=== PATIENT | female | born 1995 | race American Indian/Alaskan Native ===

== ENCOUNTER 2020-02-14 16:25 | Inpatient (IN) | payer MEDICAID ==
[2020-02-14] MEDS ORDERED: AMPICILLIN/NS 2 GM/100 ML 2 GM/100 ML BAG IV ONE (19:15)
[2020-02-14] MEDS ORDERED: LIDOCAINE (2%) 20 MG/1 ML VIAL 20 ML MDV INFILTRATI ONE (19:15)
[2020-02-14] MEDS ORDERED: TERBUTALINE 1 MG/1 ML INJ SUB-Q PRN (19:15)
[2020-02-14] MEDS ORDERED: ePHEDrine SULFATE 50 MG/1 ML INJ IV PRN (19:15)
--- NOTE | 2020-02-14 19:19 | History and Physical Report ---
History of Present Illness Date of examination: 02/14/20 Date of admission: 02/14/2020 Chief complaint: Contractions History of present illness: 24 year old presents with contractions. Patient reports active movement. Patient received care at [facility] and records are available. LMP 05/26/2019. EDC 03/01/2020. significant for the following: later entry to care, anemia (supplemented with iron), GBS positive, vitamin D deficiency (supplemented with vitamin D), thrombocytopenia. labs are as follows: O+, antibody screen negative, rubella immune, hepatitis B surface antigen negative, HIV negative, RPR nonreactive, gonorrhea negative, chlamydia negative, trichomonas negative, HSV 2 negative, hemoglobin electrophoresis AA, AFP tetra negative, 1 hour sugar test 123, GBS positive. Past History Past Medical History: no pertinent history Past Surgical History: no surgical history [facility] History: denies: chlamydia, gonorrhea, hepatitis B, hepatitis C, herpes, HIV, syphilis, trichomonas Family/Genetic History: none Social history: single, lives with family, full code. denies: smoking, alcohol abuse, prescription drug abuse, IV drug use - Obstetrical History Expected Date of Delivery: 03/01/20 Actual Gestation: 37 Week(s) 5 Day(s) : 1 Para: 0 Hx # Term Pregnancies: 0 Number of Pregnancies: 0 Spontaneous Abortions: 0 Induced : 0 Number of Living Children: 0 Medications and Allergies Allergies Allergy/AdvReac Type Severity Reaction Status Date / Time No Known Allergies Allergy Unverified 02/14/20 11:28 Active Meds: Active Medications Ephedrine Sulfate (Ephedrine Sulfate) 10 mg IV Q2M PRN PRN Reason: Hypotension Fentanyl (Sublimaze) 100 mcg IV Q2H PRN PRN Reason: Pain,Severe (7-10) LABOR PAIN Oxytocin/Sodium Chloride (Pitocin/Ns 20 Unit/1000ml Drip) 20 units in 1,000 mls @ 125 mls/hr IV DIRECT GEMA Lactated Ringer's (Lactated Ringers) 1,000 mls @ 125 mls/hr IV DIRECT GEMA Ampicillin Sodium (Ampicillin/Ns 2 Gm/100 Ml) 2 gm in 100 mls @ 100 mls/hr IV ONCE ONE; Protocol Stop: 02/14/20 20:14 Ampicillin Sodium (Ampicillin/Ns 1 Gm/50 Ml) 1 gm in 50 mls @ 100 mls/hr IV Q4HR GEMA; Protocol Lidocaine (Xylocaine 2%) 20 ml INFILTRATI ONCE ONE Stop: 02/14/20 19:16 Terbutaline Sulfate (Brethine) 0.25 mg SUB-Q ONCE PRN PRN Reason: Hyperstimulation/Hypertonicity Review of Systems All systems: negative (contractions) - Physical Exam Abdomen: Positive: normal appearance, soft. Negative: distention, tenderness, guarding, rigidity Genitourinary (Female): Positive: normal external genitalia, normal perenium. Negative: perineal/vulvar lesions Vagina: Positive: normal moisture Uterus: Positive: enlarged. Negative: tender Anus/Rectum: Positive: normal perianal skin Extremities: Positive: normal. Negative: tenderness, edema - Obstetrical FHR: category 1 Uterine Contraction Monitor Mode: External Cervical Dilatation: 5 Cervical Effacement Percentage: 90 station: -2 Uterine Contraction Pattern: Regular Uterine Contraction Intensity: Moderate Results Result Diagrams: 02/14/20 19:25 All other labs normal. Assessment and Plan A: at 37 weeks, 5 days gestation. Active labor. GBS positive. P: Admit. EFM. GBS prophylaxis. Anticipate .
[2020-02-14 19:57] LABS: Hematocrit 37.7 % (30.3-42.9); Hemoglobin 11.9 gm/dl (10.1-14.3); Mean Corpuscular HGB Conc 32 % (30-34); Mean Corpuscular Volume 78 fl (79-97); Platelet Count 128 K/mm3 (140-440); Red Blood Count 4.84 M/mm3 (3.65-5.03); Red Cell Distribution Width 15.5 % (13.2-15.2)
[2020-02-14] MEDS ORDERED: OXYTOCIN 20 UNIT/1000ML DRIP 20 UNITS/1,000 ML BAG IV SCH (20:00)
[2020-02-14] MEDS: LACTATED RINGERS 1,000 ML IV SCH (20:16)
[2020-02-14] MEDS: fentaNYL 100 MCG/2 ML INJ IV PRN ×2 (20:23→23:09)
[2020-02-14] MEDS ORDERED: AMPICILLIN/NS 1 GM/50 ML 1 GM/50 ML BAG IV SCH (23:18)
[2020-02-15] MEDS: LACTATED RINGERS 1,000 ML IV SCH (00:50)
[2020-02-15] MEDS ORDERED: BUTORPHANOL 2 MG/1 ML INJ IV ONE ×2 (01:10→01:14)
[2020-02-15] MEDS ORDERED: LIDOCAINE (2%) 20 MG/1 ML VIAL 20 ML MDV INFILTRATI ONE (01:12)
[2020-02-15] MEDS ORDERED: BUTORPHANOL 2 MG/1 ML INJ ONE (01:12)
[2020-02-15] MEDS ORDERED: HYDROcodone/ACETAMINOPHEN 5-325 MG TAB PO PRN (01:43)
[2020-02-15] MEDS ORDERED: LANOLIN/ZINC/DIMETHICONE (LANSINOH) 7 GM TP PRN (01:43)
--- NOTE | 2020-02-15 01:54 | Procedure Note ---
OB Delivery Note - Delivery Date of Delivery: 02/15/20 Surgeon: BRONSON SERRANO Estimated blood loss: other (250 cc) - Vaginal Delivery presentation: vertex Delivery position: OA Intrapartum events: meconium Delivery induction: none Delivery augmentation: rupture of membranes Delivery monitor: external FHT, external uterine Route of delivery: Delivery placenta: spontaneous Delivery cord: 3 umbilical vessels Episiotomy: none Delivery laceration: 1st degree Delivery repair: vicryl Anesthesia: local Delivery comments: Spontaneous vaginal delivery at 01:03 of liveborn male infant weighing 5 lb. 6 oz. over intact perineum with apgars of 8/9. Nuchal cord times 1. Meconium stained amniotic fluid; NICU present at delivery. Compound presentation (right hand). 3 vessel cord double clamped and cut and baby taken to radiant warmer for suctioning. Spontaneous cry and respirations. Cord blood obtained. Spontaneous delivery of intact placenta and membranes at 01:06 by mccarthy mechanism. EBL 250 cc. Pitocin to IV fluids after delivery of placenta. Fundus firm and midline. Repair of first degree right labial laceration with 3-0 vicryl. No other lacerations noted. Vaginal sweep negative. Sponge count correct. Mother and baby stable.
[2020-02-15] MEDS: WITCH HAZEL/ GLYCERIN PAD TP PRN (10:37)
[2020-02-15] MEDS: DOCUSATE SODIUM 100 MG CAP PO SCH (10:38)
[2020-02-15] MEDS: IBUPROFEN 600 MG TAB PO SCH ×2 (10:40→16:48)
[2020-02-15 14:27] LABS: Hematocrit 30.7 % (30.3-42.9); Hemoglobin 9.8 gm/dl (10.1-14.3)
[2020-02-16] MEDS: IBUPROFEN 600 MG TAB PO SCH ×3 (10:16→21:56)
[2020-02-16] MEDS: DOCUSATE SODIUM 100 MG CAP PO SCH ×2 (14:50→21:52)
[2020-02-16] MEDS: FERROUS SULFATE 325 MG TAB PO SCH (17:45)
--- NOTE | 2020-02-16 19:13 | Progress Note ---
Assessment and Plan A: day 1 S/P . Anemia. P: Supplement with iron. Anticipate discharge tomorrow when baby is able to go. Subjective - Subjective Date of service: 02/16/20 Principal diagnosis: day 1 S/P Interval history: day 1 S/P . Doing well. No complaints. Patient reports: appetite normal, voiding normally, pain well controlled, flatus, ambulating normally, no dizzy ambulation, no nauseated : doing well Objective - Vital Signs Latest vital signs: Vital Signs Temp Pulse Resp BP Pulse Ox 02/16/20 16:57 97.2 F L 95 H 18 89/59 97 02/16/20 08:04 97.8 F 95 H 18 91/60 99 02/16/20 00:10 98.1 F 95 H 18 93/53 100 Intake and Output 02/16/20 02/16/20 02/16/20 07:59 15:59 23:59 Intake Total 240 Balance 240 Intake: Intake, Free Water 240 Other: # Voids Void 2 1 2 - Exam Cardiovascular: Present: Regular rate, Normal S1, Normal S2, No murmurs Lungs: Present: Clear to auscultation Abdomen: Present: normal appearance, soft. Absent: distention, tenderness, guarding, rigidity Uterus: Present: normal, firm, fundal height below umbilicus. Absent: sai gginess, tenderness Extremities: Present: normal. Absent: tenderness, edema
[2020-02-17] MEDS: IBUPROFEN 600 MG TAB PO SCH ×2 (06:03→12:21)
--- NOTE | 2020-02-17 07:22 | Progress Note ---
Assessment and Plan A: day 2 S/P . Anemia. P: Discharge patient home today. Discussed with patient discharge instructions and warning signs in detail. Advised patient to continue taking her vitamins and iron supplements at home. Advised patient to avoid intercourse, lifting, housework. Advised patient re: signs and symptoms of depression and need to come in if she has any of these or any other problems. Advised patient to follow up at [facility] in 2 weeks. Patient voiced understanding of all instructions. Subjective - Subjective Date of service: 02/17/20 Principal diagnosis: day 2 S/P Interval history: day 2 S/P . Doing well. No complaints. Wants to go home today. Patient reports: appetite normal, voiding normally, pain well controlled, flatus, ambulating normally, no dizzy ambulation, no nauseated : doing well Objective - Vital Signs Latest vital signs: Vital Signs Temp Pulse Resp BP Pulse Ox 02/16/20 23:47 98.4 F 90 18 94/59 99 02/16/20 16:57 97.2 F L 95 H 18 89/59 97 02/16/20 08:04 97.8 F 95 H 18 91/60 99 Intake and Output 02/16/20 02/16/20 02/17/20 15:59 23:59 07:59 Intake Total 360 Balance 360 Intake: Intake, Free Water 360 Other: # Voids Void 1 1 - Exam Cardiovascular: Present: Regular rate, Normal S1, Normal S2 Lungs: Present: Clear to auscultation Abdomen: Present: normal appearance, soft. Absent: distention, tenderness, guarding, rigidity Uterus: Present: normal, firm, fundal height below umbilicus. Absent: bogginess, tenderness Extremities: Present: normal. Absent: tenderness, edema
--- NOTE | 2020-02-17 07:23 | Discharge Summary ---
Providers - Providers Date of Admission: 02/14/20 19:15 Date of discharge: 02/17/20 Attending physician: BELGICA MICHAEL Primary care physician: GAME PROTECTOR Hospitalization Reason for admission: active labor Delivery: Episiotomy: none Laceration: none Other procedures: none complications: none Discharge diagnosis: IUP at term delivered baby: male Pertinent studies: Labs Hospital course: Normal hospital course Condition at discharge: Good Disposition: DC-01 TO HOME OR SELFCARE - Discharge Diagnoses (1) Term delivered Status: Acute (2) Anemia Status: Acute Plan - Provider Discharge Summary Activity: routine, no sex for 6 weeks, no heavy lifting 4 weeks, no strenuous exercise Diet: routine Instructions: routine Additional instructions: Continue taking your vitamin and iron supplements at home. Call your doctor immediately for: * Fever > 100.5 * Heavy vaginal bleeding ( >1 pad per hour) * Severe persistent headache * Shortness of breath * Reddened, hot, painful area to leg or breast - Follow up plan Follow up: MATEUSZ KAPADIA MD [Staff Physician] - 14 Days
[2020-02-17] MEDS: DOCUSATE SODIUM 100 MG CAP PO SCH (10:24)
[2020-02-17] MEDS: WITCH HAZEL/ GLYCERIN PAD TP PRN (10:25)
[2020-02-17] MEDS: FERROUS SULFATE 325 MG TAB PO SCH (10:25)
[2020-02-17 15:39] VITALS: BP 102/74
== END 2020-02-17 15:30 | disposition home or self-care (01) | DRG 775 ==
LOC: TRG 16:25 → APU 16:29 → TRG 19:15 → LD 19:15 → OB 02-15 03:25
PROVIDERS: ADMIT Obstetrics & Gynecology; ATTEND Obstetrics & Gynecology
PROC: 10E0XZZ Delivery of Products of Conception, External Approach (ICD-10-PCS; principal; 2020-02-15)
PROC: 0HQ9XZZ Repair Perineum Skin, External Approach (ICD-10-PCS; 2020-02-15)
DX: O77.0 Labor and delivery complicated by meconium in amniotic fluid (principal); O99.02 Anemia complicating childbirth; O99.824 Streptococcus B carrier state complicating childbirth; O70.0 First degree perineal laceration during delivery; Z3A.37 37 weeks gestation of pregnancy; Z37.0 Single live birth
CPT/HCPCS: 36415; 59025; 85014; 85018; 85027; 86850; 86900; 86901; 88307; G0378; J0290; J0595; J2590; J3010; J7120

== ENCOUNTER 2021-05-06 01:43 | Inpatient (IN) | payer MEDICAID ==
[2021-05-06] MEDS ORDERED: BUTORPHANOL 2 MG/1 ML INJ ONE (02:05)
[2021-05-06] MEDS ORDERED: LACTATED RINGERS 1,000 ML ONE (02:06)
[2021-05-06] MEDS ORDERED: OXYTOCIN DRIP 30,000 MILLIUNITS/500 ML BAG IV ONE (02:06)
[2021-05-06] MEDS ORDERED: BUTORPHANOL 2 MG/1 ML INJ IV PRN (02:10)
[2021-05-06] MEDS ORDERED: LACTATED RINGERS 1,000 ML IV SCH (02:10)
[2021-05-06] MEDS ORDERED: OXYTOCIN DRIP 30 UNITS/500 ML BAG IV SCH (02:10)
--- NOTE | 2021-05-06 03:11 | History and Physical Report ---
History of Present Illness Date of examination: 05/06/21 Date of admission: 05/06/21 Chief complaint: labor History of present illness: The patient is a 25-year-old 2 para 1-0-0-1 patient in active labor. Her records are not available at this time. Anticipate vaginal delivery. Past History Past Medical History: no pertinent history Past Surgical History: no surgical history Family/Genetic History: none Social history: single - Obstetrical History Expected Date of Delivery: 05/31/21 Actual Gestation: 36 Week(s) 3 Day(s) : 2 Para: 1 Hx # Term Pregnancies: 1 Number of Pregnancies: 0 Spontaneous Abortions: 0 Induced : 0 Medications and Allergies Allergies Allergy/AdvReac Type Severity Reaction Status Date / Time No Known Allergies Allergy Unverified 02/14/20 11:28 Home Medications Medication Instructions Recorded Confirmed Last Taken Type No Known Home Medications [No 02/16/20 02/16/20 Unknown History Reported Home Medications] Review of Systems All systems: negative - Vital Signs Vital signs: Vital Signs Pulse BP 79 117/70 05/06/21 02:16 05/06/21 02:16 Temp Pulse Resp BP Pulse Ox 97.7 F 82 18 117/70 98 05/06/21 02:38 05/06/21 03:05 05/06/21 02:38 05/06/21 02:38 05/06/21 03:05 - Physical Exam Breasts: Cardiovascular: Regular rate, Normal S1, Normal S2 Abdomen: Positive: normal appearance, soft, normal bowel sounds. Negative: distention, tenderness Vulva: both: normal Vagina: Positive: normal moisture. Negative: discharge Cervix: Negative: lesion, discharge Uterus: Positive: normal size, normal contour Adnexa: both: normal Anus/Rectum: Positive: normal perianal skin, heme negative. Negative: rectal mass, hemorrhoids Extremities: Deep Tendon Reflex Grade: Normal +2 - Obstetrical FHR: category 1 Uterine Contraction Monitor Mode: External Cervical Dilatation: 8 Cervical Effacement Percentage: 100 station: 0 Uterine Contraction Frequency (min): q5m Uterine Contraction Duration: 1 min Uterine Contraction Pattern: Regular Uterine Tone Measurement Phase: Resting Uterine Contraction Intensity: Moderate Results All other labs normal. Assessment and Plan 36 weeks active labor. Patient is 8 cm bulging bag of water. Anticipate vaginal delivery.
[2021-05-06] MEDS ORDERED: HYDROcodone/ACETAMINOPHEN 5-325 MG TAB PO PRN (03:33)
[2021-05-06] MEDS ORDERED: LANOLIN/ZINC/DIMETHICONE (LANSINOH) 7 GM TP PRN (03:33)
[2021-05-06] MEDS ORDERED: PROMETHAZINE 25 MG TAB PO PRN (03:33)
[2021-05-06] MEDS ORDERED: ONDANSETRON 4 MG/2 ML INJ IV PRN (03:33)
[2021-05-06] MEDS ORDERED: WITCH HAZEL/ GLYCERIN PAD TP PRN (03:33)
[2021-05-06] MEDS ORDERED: ACETAMINOPHEN 325 MG TAB PO PRN (03:33)
[2021-05-06] MEDS ORDERED: PROMETHAZINE 25 MG RECT SUPP PR PRN (03:33)
[2021-05-06] MEDS ORDERED: diphenhydrAMINE 25 MG CAP PO PRN (03:33)
[2021-05-06] MEDS ORDERED: MAGNESIUM HYDROXIDE (MOM) ORAL LIQD UDC PO PRN (03:33)
--- NOTE | 2021-05-06 03:40 | Procedure Note ---
Date of procedure: 05/06/21 Pre-op diagnosis: 36 weeks iup, labor Post-op diagnosis: same Procedure: Delivery note: The patient. Preoperative diagnosis 36 weeks intrauterine active labor . Postoperative diagnosis same. Procedure was a normal spontaneous vaginal delivery, delivery of the placenta spontaneously. Findings liveborn weight 5 pounds 4 ounces Apgars 8 and 9. Complications none. No tears in the vagina and the rectal mucosa was intact. Anesthesia: none Surgeon: LEATHA MARCELO Estimated blood loss: other (200ccs) Pathology: none Specimen disposition: discarded Condition: stable Disposition: observation
[2021-05-06 04:58] LABS: Basophils # (Auto) 0.2 K/mm3 (0.0-0.1); Basophils % (Auto) 1.4 % (0.0-1.8); Eosinophils % (Auto) 0.2 % (0.0-4.3); Hemoglobin 10.4 gm/dl (10.1-14.3); Lymphocytes # (Auto) 2.7 K/mm3 (1.2-5.4); Lymphocytes % (Auto) 24.2 % (13.4-35.0); Mean Corpuscular HGB Conc 31 % (30-34); Mean Corpuscular Volume 76 fl (79-97); Monocytes # (Auto) 1.4 K/mm3 (0.0-0.8); Monocytes % (Auto) 12.5 % (0.0-7.3); Red Blood Count 4.48 M/mm3 (3.65-5.03); Red Cell Distribution Width 16.3 % (13.2-15.2)
[2021-05-06 05:04] LABS: Platelet Count 240 K/mm3 (140-440)
[2021-05-06] MEDS: IBUPROFEN 600 MG TAB PO SCH ×3 (06:33→19:01)
[2021-05-06 16:01] LABS: Hemoglobin 10.2 gm/dl (10.1-14.3)
[2021-05-06 19:58] LABS: Hepatitis C Virus Antibody Non-Reactive (NonReactive)
[2021-05-07] MEDS: IBUPROFEN 600 MG TAB PO SCH ×5 (05:50→21:54)
--- NOTE | 2021-05-07 11:34 | Progress Note ---
Assessment and Plan A: day 1 S/P . Anemia. Heart murmur, fatigue. P: CBC, CMP, urinalysis. Iron supplementation. Cardiology consult. Subjective - Subjective Date of service: 05/07/21 Principal diagnosis: day 1 S/P Interval history: Patient reports fatigue and has heart murmur (new); will get cardiology consult. Patient reports: appetite normal, voiding normally, pain well controlled, flatus, ambulating normally, no dizzy ambulation, no nauseated [place]: doing well Objective - Vital Signs Latest vital signs: Vital Signs Temp Pulse Resp BP Pulse Ox Pulse Ox 05/07/21 08:50 100 05/07/21 08:30 98.4 F 75 20 93/65 05/07/21 06:50 18 05/07/21 05:50 18 05/07/21 00:20 98.1 F 69 18 98/70 97 05/06/21 20:01 18 05/06/21 16:28 98.5 F 68 18 110/65 05/06/21 12:00 98 F 78 18 101/63 Intake and Output 05/06/21 05/07/21 05/07/21 23:59 07:59 15:59 Intake Total 480 480 120 Balance 480 480 120 Intake: Oral 480 360 120 Intake, Free Water 120 Other: Total, Intake Amount 120 120 120 # Voids Void 1 1 - Exam Cardiovascular: Present: Regular rate, Other (murmur heard) Lungs: Present: Clear to auscultation Abdomen: Present: normal appearance, soft, normal bowel sounds. Absent: distention, tenderness, guarding, rigidity Uterus: Present: normal, firm, fundal height below umbilicus. Absent: bogginess, tenderness Extremities: Present: normal. Absent: tenderness, edema
--- NOTE | 2021-05-07 15:30 | Consultation ---
History of Present Illness Consult date: 05/07/21 Requesting physician: BRONSON SERRANO Consult reason: other (heart murmur) History of present illness: Patient is a 25 y/o female who S/P vaginal with no pmhx. Cardiology has been consulted for presentation of new heart murmur. At time of interview the patient is resting comfortably in bed. She reports some fatigue, lightheadedness, and SOB since giving . She denies chest pain or palpitations. Past History Past Medical History: No medical history Past Surgical History: No surgical history Social history: no significant social history, single Family history: no significant family history Medications and Allergies Allergies Allergy/AdvReac Type Severity Reaction Status Date / Time No Known Allergies Allergy Verified 05/07/21 05:52 Home Medications Medication Instructions Recorded Confirmed Last Taken Type No Known Home Medications [No 02/16/20 05/06/21 Unknown History Reported Home Medications] Active Meds: Active Medications Acetaminophen (Acetaminophen 325 Mg Tab) 650 mg PO Q4H PRN PRN Reason: Pain MILD(1-3)/Fever >100.5/MEYERS Hydrocodone Bitart/Acetaminophen (Hydrocodone/Acetaminophen 5-325 Mg Tab) 2 each PO Q6H PRN PRN Reason: Pain, Moderate (4-6) Bisacodyl (Bisacodyl 10 Mg Rect Supp) 10 mg CO BID PRN PRN Reason: Constipation Butorphanol Tartrate (Butorphanol 2 Mg/1 Ml Inj) 2 mg IV Q2H PRN PRN Reason: Labor Pain Diphenhydramine HCl (Diphenhydramine 25 Mg Cap) 25 mg PO Q6H PRN PRN Reason: Itching Ferrous Sulfate (Ferrous Sulfate 325 Mg Tab) 325 mg PO BID GEMA Lactated Ringer's (Lactated Ringers) 1,000 mls @ 125 mls/hr IV DIRECT GEMA Oxytocin/Sodium Chloride (Pitocin/Ns 30 Unit/500ml) 30 units in 500 mls @ 1 mls/hr IV TITR GEMA; Protocol Ibuprofen (Ibuprofen 600 Mg Tab) 600 mg PO Q6H GEMA Last Admin: 05/07/21 11:37 Dose: 600 mg Documented by: Magnesium Hydroxide (Magnesium Hydroxide (Mom) Oral Liqd Udc) 30 ml PO HS PRN PRN Reason: Constipation Multi-Ingredient Ointment (Lanolin/Zinc/Dimethicone (Lansinoh) 7 Gm) 1 applic TP PRN PRN PRN Reason: Sore Nipples Ondansetron HCl (Ondansetron 4 Mg/2 Ml Inj) 4 mg IV Q8H PRN PRN Reason: Nausea And Vomiting Promethazine HCl (Promethazine 25 Mg Rect Supp) 25 mg CO Q6H PRN PRN Reason: Nausea And Vomiting Promethazine HCl (Promethazine 25 Mg Tab) 25 mg PO Q6H PRN PRN Reason: Nausea And Vomiting Sodium Chloride (Sodium Chloride 0.9% 10 Ml Flush Syringe) 10 ml IV PRN PRN PRN Reason: LINE FLUSH Witch Delmy/Glycerin (Witch Delmy/ Glycerin Pad) 1 each TP PRN PRN PRN Reason: Hemorrhoid/cleansing/soothing Last Admin: 05/06/21 11:11 Dose: 1 each Documented by: Review of Systems All systems: negative Constitutional: no weight loss, no weight gain, no fever, no chills, no sweats Ears, nose, mouth and throat: no nasal congestion, no nasal discharge, no sinus pressure, no sinus pain Cardiovascular: lightheadedness, shortness of breath, no chest pain, no orthopnea, no palpitations, no rapid/irregular heart beat Respiratory: shortness of breath, no cough, no cough with sputum, no excessive sputum, no hemoptysis Gastrointestinal: no abdominal pain, no nausea, no vomiting Musculoskeletal: no neck stiffness, no neck pain, no shooting arm pain, no arm numbness/tingling Integumentary: no rash, no pruritis, no redness, no sores Neurological: no head injury, no transient paralysis, no paralysis, no weakness Psychiatric: no anxiety, no memory loss Endocrine: no cold intolerance, no heat intolerance Hematologic/Lymphatic: no easy bruising, no easy bleeding Physical Examination Last Vital Signs Temp 98.4 F 05/07/21 08:30 Pulse 75 05/07/21 08:30 Resp 16 05/07/21 11:37 BP 93/65 05/07/21 08:30 Pulse Ox 100 05/07/21 08:50 General appearance: no acute distress HEENT: Positive: PERRL Neck: Positive: neck supple, trachea midline Cardiac: Positive: Reg Rate and Rhythm, Systolic Murmur Lungs: Positive: clear to auscultation, Normal Breath Sounds Neuro: Positive: Grossly Intact Abdomen: Positive: Soft, Active Bowel Sounds Skin: Negative: Rash, Suspicious Lesions, Ulceration Extremities: Present: upper extr. pulses, lower extr. pulses Results 05/06/21 15:12 CBC 05/06/21 Range/Units 15:12 Hgb 10.2 (10.1-14.3) gm/dl Hct 32.0 (30.3-42.9) % - Imaging and Cardiology Echo: pending Assessment and Plan S/P Vaginal delivery Heart murmur * Patient gave yesterday. Has systolic murmur /. * Echo 05/07/2021 -EF 50-55%, mild tricuspid regurgitation, trace pulmonary insufficiency, RVSP 15mmHg Echo shows no significant acute findings. Patient stable and may be discharged from a cardiology perspective. Patient seen in conjunction with Dr. Melendez. - Patient Problems (1) Heart murmur, systolic Current Visit: Yes Status: Acute (2) Anemia Current Visit: No Status: Acute (3) Term delivered Current Visit: No Status: Acute
[2021-05-07 16:17] LABS: Bilirubin,Urine NEG (Negative); Blood,Urine LG (Negative); Color,Urine Yellow (Yellow); Mucus,Urine FEW /HPF; Protein,Urine <15 mg/dL mg/dL (Negative); Urobilinogen,Urine < 2.0 mg/dL (<2.0)
[2021-05-07 19:56] LABS: Basophils # (Auto) 0.1 K/mm3 (0.0-0.1); Basophils % (Auto) 0.5 % (0.0-1.8); Eosinophils # (Auto) 0.1 K/mm3 (0.0-0.4); Eosinophils % (Auto) 0.5 % (0.0-4.3); Hematocrit 32.5 % (30.3-42.9); Lymphocytes # (Auto) 1.8 K/mm3 (1.2-5.4); Lymphocytes % (Auto) 16.2 % (13.4-35.0); Mean Corpuscular HGB Conc 31 % (30-34); Mean Corpuscular Volume 76 fl (79-97); Monocytes # (Auto) 1.1 K/mm3 (0.0-0.8); Monocytes % (Auto) 10.3 % (0.0-7.3); Red Blood Count 4.28 M/mm3 (3.65-5.03); Red Cell Distribution Width 17.1 % (13.2-15.2)
[2021-05-07 19:58] LABS: Platelet Count 246 K/mm3 (140-440)
[2021-05-07 20:18] LABS: Alanine Aminotransferase 7 units/L (7-56); Albumin 2.8 g/dL (3.9-5); Blood Urea Nitrogen 11 mg/dL (7-17); Calcium 8.2 mg/dL (8.4-10.2); Hemolysis Index 46
[2021-05-07 20:25] LABS: BUN/Creatinine Ratio 22
[2021-05-07] MEDS: FERROUS SULFATE 325 MG TAB PO SCH (21:53)
[2021-05-08] MEDS: IBUPROFEN 600 MG TAB PO SCH (04:23)
[2021-05-08] MEDS ORDERED: POTASSIUM CHLORIDE ER 10 MEQ TAB PO ONE (06:04)
[2021-05-08] MEDS: FERROUS SULFATE 325 MG TAB PO SCH (09:23)
[2021-05-08 09:41] VITALS: BP 103/74
--- NOTE | 2021-05-08 10:24 | Discharge Summary ---
Providers - Providers Date of Admission: 05/06/21 03:33 Date of discharge: 05/08/21 Attending physician: LEATHA MARCELO MD 05/07/21 11:37 Consult to Physician [CONS] Routine Comment: Consulting Provider: ESTIVEN RAMIREZ Physician Instructions: Reason For Exam: Heart murmur, fatigue, patient Primary care physician: LEATHA MARCELO MD Hospitalization Delivery: Episiotomy: none Laceration: none complications: none Discharge diagnosis: IUP at term delivered Condition at discharge: Stable Disposition: 01 HOME / SELF CARE / HOMELESS Plan - Provider Discharge Summary Activity: no sex for 6 weeks Diet: routine Instructions: routine Additional instructions: [] Smoking cessation referral if applicable(refer to patient education folder for contact #) [] Refer to [facility] Booklet Call your doctor immediately for: * Fever > 100.5 * Heavy vaginal bleeding ( >1 pad per hour) * Severe persistent headache * Shortness of breath * Reddened, hot, painful area to leg or breast * Drainage or odor from incision. * Keep incision clean and dry at all times and follow doctor's instructions regarding bathing/showering - Follow up plan Follow up: LEATHA MARCELO MD [Primary Care Provider] - 6 Weeks
--- NOTE | 2021-05-08 10:29 | Progress Note ---
Assessment and Plan d/c to home brown Beltre MD Subjective - Subjective Date of service: 05/08/21 Principal diagnosis: day 1 S/P Patient reports: appetite normal, voiding normally, pain well controlled, ambulating normally : doing well Objective - Vital Signs Latest vital signs: Vital Signs Temp Pulse Resp BP Pulse Ox Pulse Ox 05/08/21 08:45 98.4 F 67 18 103/74 100 05/08/21 01:44 100 05/08/21 01:03 98.1 F 79 18 104/67 100 05/08/21 00:45 99 05/08/21 00:44 18 05/07/21 21:08 99 05/07/21 19:35 99 05/07/21 11:37 16 Intake and Output 05/07/21 05/08/21 05/08/21 23:59 07:59 15:59 Intake Total 560 360 240 Balance 560 360 240 Intake: Oral 560 240 Intake, Free Water 360 Other: Total, Intake Amount 240 240 # Voids Void 1 1 - Exam Breasts: Present: deferred Cardiovascular: Present: Regular rate Lungs: Present: Clear to auscultation Abdomen: Present: normal appearance, soft, normal bowel sounds Vulva: both: normal Uterus: Present: fundal height below umbilicus Extremities: Present: normal Deep Tendon Reflex Grade: Normal but brisk +3 Comments: lochia mild - Labs Labs: Abnormal lab results 05/07/21 05/07/21 05/07/21 Range/Units 14:51 19:21 19:21 WBC 11.1 H (4.5-11.0) K/mm3 Hgb 10.0 L (10.1-14.3) gm/dl MCV 76 L (79-97) fl MCH 24 L (28-32) pg RDW 17.1 H (13.2-15.2) % Rabun % (Auto) 10.3 H (0.0-7.3) % [place] # (Auto) 1.1 H (0.0-0.8) K/mm3 Seg Neutrophils % 72.5 H (40.0-70.0) % Seg Neutrophils # 8.0 H (1.8-7.7) K/mm3 Sodium 133 L (137-145) mmol/L Potassium 3.3 L (3.6-5.0) mmol/L Carbon Dioxide 19 L (22-30) mmol/L Creatinine 0.5 L (0.6-1.2) mg/dL Glucose 63 L (65-100) mg/dL Calcium 8.2 L (8.4-10.2) mg/dL Albumin 2.8 L (3.9-5) g/dL Urine WBC (Auto) 65.0 H (0.0-6.0) /HPF
== END 2021-05-08 15:05 | disposition home or self-care (01) | DRG 775 ==
LOC: TRG 01:43 → APU 01:56 → LD 03:00 → TRG 03:33 → OB 05:20
PROC: 10E0XZZ Delivery of Products of Conception, External Approach (ICD-10-PCS; principal; 2021-05-06)
DX: O75.89 Other specified complications of labor and delivery (principal); O90.81 Anemia of the puerperium; Z3A.36 36 weeks gestation of pregnancy; Z37.0 Single live birth; Z20.822 Contact with and (suspected) exposure to COVID-19; R01.1 Cardiac murmur, unspecified
CPT/HCPCS: 36415; 80053; 81001; 85014; 85018; 85025; 86592; 86706; 86762; 86803; 86850; 86900; 86901; 87086; 87806; 93306; 99211; G0378; G0463; J2590; J7120; U0003

== ENCOUNTER 2021-11-04 08:34 | Emergency (ER) | payer MEDICAID ==
[2021-11-04] MEDS ORDERED: IBUPROFEN 600 MG TAB PO ONE (08:40)
[2021-11-04 08:41] VITALS: BP 102/67
--- NOTE | 2021-11-04 08:43 | Emergency Department Report ---
ED General Adult HPI - General Chief complaint: Chest Pain Stated complaint: CHEST PAIN Time Seen by Provider: 11/04/21 08:40 Source: patient Mode of arrival: Wheelchair Limitations: No Limitations - History of Present Illness Initial comments: Patient presents with a 2-day history of chest pain and shortness of breath that is progressively worsened. She states that it started and just got worse and worse. She describes the chest pain as tightness. This is across the precordium. It is worse with supine position. It is worse when she tries to ta ke a deep breath. She states that the shortness of breath is also worse with supine position. There has been a slight runny nose but no cough. She has no fevers or chills. There is no vomiting or diarrhea. She denies recent travel or injury. Patient has had no pain or swelling in the feet or ankles. She was not vaccinated against influenza or coronavirus. She has had no known sick contacts. She has not taken anything for her symptoms as of yet. - Related Data Previous Rx's Medication Instructions Recorded Last Taken Type Ibuprofen [Motrin] 600 mg PO Q8H PRN #60 tablet 05/08/21 Unknown Rx Albuterol Sulfate [Proventil Hfa] 2 puff IH 4XD #1 inh 11/04/21 Unknown Rx Ibuprofen [Motrin] 600 mg PO Q8H PRN #20 tablet 11/04/21 Unknown Rx Allergies Allergy/AdvReac Type Severity Reaction Status Date / Time No Known Allergies Allergy Verified 11/04/21 08:36 ED Review of Systems ROS: Stated complaint: CHEST PAIN Other details as noted in HPI Comment: All other systems reviewed and negative Constitutional: denies: fever Eyes: denies: vision change ENT: denies: epistaxis Respiratory: see HPI Cardiovascular: as per HPI Endocrine: denies: unexplained weight loss Gastrointestinal: denies: abdominal pain Genitourinary: denies: dysuria Musculoskeletal: denies: back pain Skin: denies: rash Neurological: denies: headache Hematological/Lymphatic: denies: easy bruising ED Past Medical Hx - Past Medical History Hx Hypertension: No Hx Congestive Heart Failure: No Hx Diabetes: No Hx Deep Vein Thrombosis: No Hx Renal Disease: No Hx Sickle Cell Disease: No Hx Seizures: No Hx Psychiatric Treatment: (DEPRESSION/ ANIXETY) Hx Asthma: No Hx COPD: No Hx HIV: No - Surgical History Past Surgical History?: No - Family History Family history: no significant - Social History Smoking Status: Never Smoker - Medications Home Medications: Home Medications Medication Instructions Recorded Confirmed Last Taken Type Ibuprofen [Motrin] 600 mg PO Q8H PRN #60 tablet 05/08/21 Unknown Rx Albuterol Sulfate [Proventil Hfa] 2 puff IH 4XD #1 inh 11/04/21 Unknown Rx Ibuprofen [Motrin] 600 mg PO Q8H PRN #20 tablet 11/04/21 Unknown Rx ED Physical Exam - General Limitations: No Limitations, Other (Pulse ox noted and normal) General appearance: alert, in no apparent distress - Head Head exam: Present: atraumatic, normocephalic, normal inspection - Eye Eye exam: Present: normal appearance, EOMI. Absent: scleral icterus - ENT ENT exam: Present: normal orophraynx, normal external ear exam - Neck Neck exam: Present: normal inspection. Absent: meningismus - Respiratory Respiratory exam: Present: normal lung sounds bilaterally. Absent: respiratory distress - Cardiovascular Cardiovascular Exam: Present: regular rate, normal rhythm - GI/Abdominal GI/Abdominal exam: Present: soft - Extremities Exam Extremities exam: Present: normal capillary refill. Absent: pedal edema, calf tenderness - Back Exam Back exam: Absent: CVA tenderness (R), CVA tenderness (L) - Neurological Exam Neurological exam: Present: alert, oriented X3, CN II-XII intact. Absent: motor sensory deficit - Psychiatric Psychiatric exam: Present: normal affect, normal mood - Skin Skin exam: Present: warm, dry ED Course Vital Signs 11/04/21 08:40 Temperature 98.2 F Pulse Rate 70 Respiratory 20 Rate Blood Pressure 102/67 [Right] O2 Sat by Pulse 98 Oximetry - Reevaluation(s) Reevaluation #1: 11/04/21 08:42 EKG and chest x-ray were ordered. Old records noted. Reevaluation #2: 11/04/21 10:34 X-ray was noted. Patient was discharged. ED Medical Decision Making - EKG Data -: EKG Interpreted by Me - EKG Data 11/04/21 10:35 EKG shows a normal sinus rhythm without ectopy. Intervals are normal including QRS and QT corrected. There is no ST elevation to suggest any per there is no ST depression suggestive of ischemia. - Radiology Data Radiology results: report reviewed - Medical Decision Making Patient presents with chest pain difficulty breathing. She has a presentation that could be concerning for coronavirus. She does have an atypical pneumonia. At this time, patient is not hypoxic. She does not appear to be septic or toxic. She is in no distress. Patient does have symptoms that would be consistent with an atypical or viral type pneumonia. There is no indication for empiric antibiotic therapy. She does not have a lobar pneumonia. Patient was told to isolate. She should quarantine at home until she can get coronavirus testing. Even then, she should still give credence to the idea of quarantine and isolation. Critical Care Time: No Critical care attestation.: If time is entered above; I have spent that time in minutes in the direct care of this critically ill patient, excluding procedure time. ED Disposition Clinical Impression: Chest tightness, Shortness of breath, Atypical pneumonia, Suspected COVID-19 virus infection Disposition: HOME / SELF CARE / HOMELESS Is pt being admited?: No Condition: Stable Instructions: COVID-19 Frequently Asked Questions, COVID-19, Nonspecific Chest Pain, Adult, Shortness of Breath, Adult, Prevent the Spread of COVID-19 if You Are Sick - [facility] Additional Instructions: Drink plenty water. Return for problems. Follow-up with your family doctor or regular physician. Follow-up with the referral physician if you do not have a regular doctor. Return for problems. Prescriptions: Ibuprofen [Motrin] 600 mg PO Q8H PRN #20 tablet PRN Reason: Pain Albuterol Sulfate [Proventil Hfa] 2 puff IH 4XD #1 inh Referrals: PRIMARY MD LEON [Referring] - 3-5 Days EJ BECKMAN MD [Staff Physician] - 3-5 Days
--- NOTE | 2021-11-04 09:34 | XRay Report ---
XR chest routine 2V INDICATION / CLINICAL INFORMATION: cp. COMPARISON: None available. FINDINGS: SUPPORT DEVICES: None. HEART /PULMONARY VASCULATURE: No significant abnormality. LUNGS / PLEURA: Mild patchy interstitial opacities are present throughout the lungs. There is no foca l airspace consolidation. No pleural effusion. No pneumothorax. ADDITIONAL FINDINGS: No significant additional findings. IMPRESSION: Subtle interstitial opacities throughout the lungs, suspicious for atypical pneumonia. Signer Name: Nish Mott MD Signed: 11/04/2021 9:30 AM Workstation Name: [id number]
--- NOTE | 2021-11-04 10:58 | Electrocardiograph Report ---
[facility] Test Date: 2021-11-04 Test Time: 08:51:29 Pat Name: HOLLAND STOLL Department: Room: Gender: F Teacher Music: GUERA : 1995 Requested By: NILA ROMAN Order Number: [id number] Reading MD: Fabrizio Baldwin Measurements Intervals [place] Rate: 88 P: 24 NH: 173 QRS: -4 QRSD: 86 T: 30 QT: 392 QTc: 474 Interpretive Statements Sinus rhythm No previous ECG available for comparison Electronically Signed On 11-04-2021 10:58:01 EST by Fabrizio Baldwin
== END 2021-11-04 10:38 | disposition home or self-care (01) ==
LOC: ED 08:34
DX: J18.9 Pneumonia, unspecified organism (principal); Z20.822 Contact with and (suspected) exposure to COVID-19; F32.9 Major depressive disorder, single episode, unspecified; F41.9 Anxiety disorder, unspecified; Z79.899 Other long term (current) drug therapy
CPT/HCPCS: 71046; 93005; 93010; 99283